=== PATIENT | female | born 1985 | race Caucasian/White ===

== ENCOUNTER 2016-08-17 21:43 | Emergency (ER) | payer MEDICAID ==
[~2016-08-17] VITALS: Ht 170.2 cm; Wt 68.0 kg
[~2016-08-17 21:43] MED LIST: PRILOSEC20 MG PO
== END 2016-08-17 22:36 | disposition short-term general hospital (02) ==
LOC: ER 21:43
DX: J32.9 Chronic sinusitis, unspecified (principal); F32.9 Major depressive disorder, single episode, unspecified; F17.210 Nicotine dependence, cigarettes, uncomplicated; Z79.899 Other long term (current) drug therapy; Z91.040 Latex allergy status; Z88.8 Allergy status to other drugs, medicaments and biological substances